=== PATIENT | female | born 1975 | race African-American/Black ===

== ENCOUNTER 2020-03-30 17:16 | Inpatient (IN) | payer OTHER ==
[~2020-03-30] VITALS: Ht 157.5 cm; Wt 60.9 kg
[~2020-03-30 17:16] MED LIST: Metformin Hcl PO
[2020-03-30] MEDS ORDERED: SODIUM CHLORIDE 0.9% 1,000 ML IV ONE (17:42)
[2020-03-30] MEDS ORDERED: ONDANSETRON HCL 4MG/2ML INJ IV STA (17:42)
[2020-03-30 18:55] LABS: HEMATOCRIT. 30.2 % (36.0-48.0); HEMOGLOBIN. 9.9 g/dL (12.0-16.0); MEAN CORPUSCULAR HEMOGLOBIN 28.8 pg (28.0-32.0); MEAN CORPUSCULAR VOLUME 87.4 fL (81.0-99.0); MEAN PLATELET VOLUME 8.3 fl (7.4-10.4); PLATELET 477 x1000/uL (130-400); RED BLOOD CELL COUNT 3.45 mill/uL (4.2-5.4); RED CELL DISTRIBUTION WIDTH 14.7 % (11.6-14.6)
[2020-03-30 18:58] LABS: CHLORIDE 106 mEq/L (98-107)
[2020-03-30 19:02] LABS: INR 0.9; PROTHROMBIN TIME 9.7 sec (9.6-11.0)
[2020-03-30 19:21] LABS: HCG SCREEN NEGATIVE
[2020-03-30] MEDS ORDERED: VANCOMYCIN 1 G PREMIX 200 ML IV ONE (20:00)
[2020-03-30] MEDS ORDERED: LABETALOL 5MG/ML SYR 20 MG/4 ML SYRINGE IV ONE (20:00)
[2020-03-30] MEDS ORDERED: CEFTRIAXONE 1 G PREMIX 50 ML IV ONE (20:00)
[2020-03-30 20:03] LABS: PLATELET ESTIMATE INCREASED
[2020-03-30 21:24] LABS: CLARITY URINE CLEAR (CLEAR); COLOR URINE YELLOW (YELLOW); KETONES URINE TRACE (NEGATIVE); LEUKOCYTE ESTERASE URINE NEGATIVE (NEGATIVE); NITRITE URINE NEGATIVE (NEGATIVE); OCCULT BLOOD URINE 1+ (NEGATIVE); PH URINE 7.5 (4.5-8.0); PROTEIN URINE 2+ (NEGATIVE); SPECIFIC GRAVITY URINE 1.014 (1.005-1.030); UROBILINOGEN URINE 0.2 E.U./dL (0.2-1.0)
[2020-03-30 21:41] LABS: METHADONE URINE SCREEN NEGATIVE (NEGATIVE); OPIATES URINE SCREEN NEGATIVE (NEGATIVE); PHENCYCLIDINE URINE SCREEN NEGATIVE (NEGATIVE)
[2020-03-30 21:43] LABS: *AMPHETAMINES SCREEN URINE NEGATIVE (NEGATIVE); *BARBITURATES SCREEN URINE NEGATIVE (NEGATIVE); *BENZODIAZEPINES SCREEN URINE NEGATIVE (NEGATIVE); CANNABINOID URINE SCREEN NEGATIVE (NEGATIVE)
[2020-03-30 21:45] LABS: *COCAINE SCREEN URINE PRESUMTIVE POSITIVE (NEGATIVE)
[2020-03-30] MEDS ORDERED: ONDANSETRON HCL 4MG/2ML INJ IV PRN (21:45)
[2020-03-30] MEDS ORDERED: GUAIFENESIN 200MG/10ML SUGAR FREE UDC PO PRN (21:45)
[2020-03-30] MEDS ORDERED: HYDROCODONE/ACETAMINOPHEN 5/325MG TABLET PO PRN (21:45)
[2020-03-30] MEDS ORDERED: ACETAMINOPHEN 325MG TABLET PO PRN (21:45)
[2020-03-30] MEDS ORDERED: DOCUSATE SODIUM 100MG CAPSULE PO PRN (21:45)
[2020-03-30] MEDS ORDERED: CLONIDINE 0.1MG TABLET PO PRN (21:45)
[2020-03-30] MEDS ORDERED: MAGNESIUM/ALUMINUM HYDROXIDE/SIMETHICONE 30ML UDC PO PRN (21:45)
[2020-03-30] MEDS: METOPROLOL TARTRATE 50MG TABLET PO SCH (22:00)
[2020-03-30] MEDS: LISINOPRIL 40MG TABLET PO SCH (23:00)
[2020-03-30] MEDS ORDERED: IOHEXOL-300 100 ML BOTTLE ONE (23:28)
[2020-03-30] MEDS: AMLODIPINE 10MG TABLET PO SCH (23:30)
[2020-03-30 23:32] LABS: CREATINE KINASE 96 IU/L (26-192); CREATINE KINASE MB FRACTION < 1.0 ng/mL (0.5-3.6)
[2020-03-31 03:10] VITALS: BP 163/96
[2020-03-31 03:30] VITALS: BP 163/96
[2020-03-31 04:00] VITALS: BP 105/59
[2020-03-31] MEDS ORDERED: INSU100I28 SQ (05:38)
[2020-03-31] MEDS ORDERED: DEXTROSE 50% WATER 50ML SYRINGE IV PRN (07:00)
[2020-03-31] MEDS ORDERED: BLOOD SUGAR DIAGNOSTIC STRIP TEST SCH (07:20)
[2020-03-31] MEDS ORDERED: INSULIN LISPRO 100 UNITS/ML SUBCUT SCH (07:50)
[2020-03-31 08:00] VITALS: BP 122/72
[2020-03-31 08:32] LABS: BASOPHILS % 0.5 % (0.0-2.0); EOSINOPHILS % 1.9 % (0.0-5.0); HEMATOCRIT. 24.5 % (36.0-48.0); HEMOGLOBIN. 8.1 g/dL (12.0-16.0); LYMPHOCYTES % 11.6 % (20.0-50.0); MEAN CORPUSCULAR HEMOGLOBIN 28.3 pg (28.0-32.0); MEAN CORPUSCULAR VOLUME 85.5 fL (81.0-99.0); MEAN PLATELET VOLUME 8.4 fl (7.4-10.4); MONOCYTES % 7.5 % (2.0-8.0); NEUTROPHILS % 78.5 % (40.0-76.0); PLATELET 367 x1000/uL (130-400); RED BLOOD CELL COUNT 2.86 mill/uL (4.2-5.4); RED CELL DISTRIBUTION WIDTH 14.4 % (11.6-14.6)
[2020-03-31 08:38] LABS: CHLORIDE 106 mEq/L (98-107)
[2020-03-31 08:45] LABS: CREATINE KINASE 68 IU/L (26-192); HDL CHOLESTEROL 59 mg/dL (40-59); LDL CHOLESTEROL 23 mg/dL (5-100)
[2020-03-31] MEDS: LISINOPRIL 40MG TABLET PO SCH (08:48)
[2020-03-31] MEDS: AMLODIPINE 10MG TABLET PO SCH (08:48)
[2020-03-31] MEDS: METOPROLOL TARTRATE 50MG TABLET PO SCH (08:48)
[2020-03-31 08:49] LABS: CREATINE KINASE MB FRACTION < 1.0 ng/mL (0.5-3.6)
[2020-03-31] MEDS ORDERED: ENOXAPARIN 30MG/0.3ML SYR SUBCUT SCH (09:00)
[2020-03-31 11:06] VITALS: BP 122/71
== END 2020-03-31 12:30 | disposition home or self-care (01) | DRG 304 ==
LOC: ER 17:16 → 6WST 21:09 → EDBEDREQ 21:16 → EDBEDREQTM 21:16 → EDBEDREQSVC 21:16 → ENRESERV 23:44
PROVIDERS: ADMIT Hospitalist; ATTEND Hospitalist
DX: I16.0 Hypertensive urgency (principal); E43 Unspecified severe protein-calorie malnutrition; N17.9 Acute kidney failure, unspecified; K81.0 Acute cholecystitis; D63.8 Anemia in other chronic diseases classified elsewhere; D72.829 Elevated white blood cell count, unspecified; E11.65 Type 2 diabetes mellitus with hyperglycemia; I10 Essential (primary) hypertension; Z82.49 Family history of ischemic heart disease and other diseases of the circulatory system; Z68.24 Body mass index [BMI] 24.0-24.9, adult
CPT/HCPCS: 36415; 71045; 74177; 80053; 80061; 80305; 81003; 82550; 82553; 82962; 83036; 83605; 83880; 84484; 84703; 85025; 86850; 86900; 93005; 93970; 96365; 99291; J0696; J1650; J1815; J2405; J3370; J3490; J7030; Q9967